=== PATIENT | female | born 1955 | race Two or more races ===

== ENCOUNTER 2025-06-08 06:00 | Day surgery (SDC) | payer OTHER ==
[2025-06-01 09:10] VITALS: BP 152/73
[2025-06-01 09:21] LABS: URINE APPEARANCE Clear; URINE BILIRRUBIN Negative (NEGATIVE); URINE BLOOD Negative; URINE COLOR Yellow; URINE GLUCOSE Negative (NEGATIVE); URINE KETONE Negative (NEGATIVE); URINE LEUKOCYTE Negative; URINE NITRATE Negative; URINE PROTEIN Trace (NEGATIVE); URINE UROBILINOGEN 0.2 E.U./dl
[2025-06-01 09:23] LABS: BASO % 0.6 % (0.1-1.2); EOS # 0.02 (0.04-0.54); EOS % 0.2 % (0.7-7.0); LYMPH # 2.14 (1.18-3.74); LYMPH % 25.2 % (19.3-53.1); MEAN PLATELET VOLUME 10.20 fl (9.4-12.4); MONO # 0.54 (0.24-0.82); MONO % 6.4 % (4.7-12.5); NEUT # 5.71 (1.56-6.13); NEUT % 67.4 % (34.0-71.1); RED CELL DISTRIBUTION WIDTH 12.6 % (11.6-14.4)
[2025-06-01 09:25] LABS: URINE BACTERIA 5.9 uL (0.0-1933); URINE EPITHELIAL CELLS 7.2 uL (0.0-38.8); URINE RBC 2.1 uL (0.0-20.8); URINE WBC 7.3 uL (0.0-23.2)
[2025-06-01 09:28] LABS: URINE CAST 0.43 uL (0.0-1.40)
[2025-06-01 09:47] LABS: INR 0.99
[2025-06-01 09:52] LABS: ALT/SGPT 29.0 U/L (12-78); AST/SGOT 25.0 U/L (15-37); BILIRUBIN TOTAL 1.43 mg/dL (0.3-1.2); BUN CREA RATIO 20.0 (7.0-25.0); CREATININE SERUM 0.6 mg/dL (0.55-1.02); GFR 99.41; GLOBULINA 3.4 G/DL (2.4-3.5); GLUCOSE FASTING 92.0 mg/dL (65-100); OSMOLALITY SERUM 283.0 MOSM/KG (275-295)
[~2025-06-08] VITALS: Ht 157.5 cm; Wt 51.3 kg
[~2025-06-08 06:00] MED LIST: ATORVASTATIN CA10 MG PO; CEFAZOLIN SODIUM 1,000 MG VIAL ONE; COZAAR25 MG PO; ZETIA10 MG PO
[2025-06-08] MEDS ORDERED: LIDOCAINE HCL 1%/EPINEPHRINE 20ML VIAL IJ ONE (07:01)
[2025-06-08] MEDS ORDERED: BUPIVACAINE HCL/MPF 0.5% 30ML VIAL ONE (07:01)
[2025-06-08] MEDS ORDERED: METHYLPREDNISOLONE ACETATE 80 MG/ML VIAL ONE (07:57)
[2025-06-08] MEDS ORDERED: KETOROLAC TROMETHAMINE 60 MG VIAL IM ONE (07:58)
[2025-06-08] MEDS ORDERED: KETOROLAC TROMETHAMINE 30 MG VIAL ONE (07:59)
[2025-06-08] MEDS ORDERED: MORPHINE SULFATE 4 MG/ML VIAL IV ONE (09:05)
== END 2025-06-08 11:45 | disposition home or self-care (01) ==
LOC: CIR.AMB 06:00
PROVIDERS: ATTEND Orthopaedic Surgery
DX: M75.42 Impingement syndrome of left shoulder (principal); M75.02 Adhesive capsulitis of left shoulder; Z88.8 Allergy status to other drugs, medicaments and biological substances